=== PATIENT | male | born 1975 | race Caucasian/White ===

== ENCOUNTER 2016-11-01 18:23 | Emergency (ER) | payer OTHER ==
[~2016-11-01] VITALS: Ht 177.8 cm; Wt 93.3 kg
[~2016-11-01 18:23] MED LIST: ATIVAN2 MG PO; CIPRO500 MG PO; DILAUDID8 MG PO; FLAGYL500 MG PO; HYDROMORPHONE HC8 MG PO; METHADONE10 MG PO; METRONIDAZOLE500 MG PO; OXYCONTIN40 MG PO; PHENADOZ25 MG PR; ROXICODONE30 MG PO; TERBINAFINE HC250 MG PO; TRAMADOL HCL50 MG PO; ZOFRAN ODT4 MG PO; ZOFRAN4 MG PO
[2016-11-01] MEDS ORDERED: LIDODERM 5% P1 PATCH TD (20:30)
[2016-11-01] MEDS ORDERED: INDOCIN50 MG PO (20:31)
[2016-11-01] MEDS ORDERED: VALIUM5 MG PO (20:31)
[2016-11-01 21:24] VITALS: BP 150/66
== END 2016-11-01 21:25 | disposition home or self-care (01) ==
LOC: EME 18:23
DX: S29.011A Strain of muscle and tendon of front wall of thorax, initial encounter (principal); X50.0XXA Overexertion from strenuous movement or load, initial encounter; Y93.89 Activity, other specified
CPT/HCPCS: 99281; 99284; J3010

== ENCOUNTER 2017-05-27 16:00 | Inpatient (IN) | payer OTHER ==
[~2017-05-27] VITALS: Ht 180.3 cm; Wt 72.1 kg
[~2017-05-27 16:00] MED LIST changes: +INDOCIN50 MG PO; +LIDODERM 5% P1 PATCH TD; +VALIUM5 MG PO
[2017-05-27 17:06] LABS: HEMATOCRIT 42.3 % (38.0-50.0); HEMOGLOBIN 14.8 G/DL (12.5-16.6); MCH 29.9 PG (29.0-34.0); MCV 85.5 FL (86-99); PLATELET COUNT 235 K/uL (156-360); RBC DIS.WIDTH-CV 13.1 % (11.8-14.6); RBC DIS.WIDTH-SD 40.3 % (39-53); RED BLOOD COUNT 4.95 M/uL (4.00-5.50); WHITE BLOOD COUNT 11.8 K/uL (4.1-10.2)
[2017-05-27 17:16] LABS: CHLORIDE 107 mEq/L (99-109); POTASSIUM 3.7 mEq/L (3.7-5.4); SODIUM 140 mEq/L (136-147)
[2017-05-27 17:18] LABS: GLUCOSE 98 mg/dL (70-99)
[2017-05-27 17:21] LABS: SERUM ETHYL ALCOHOL < 10 mg/dL
[2017-05-27 17:22] LABS: GFR ESTIMATE (CALCULATED) > 59 mL/min/ (58.99-99999); UREA NITROGEN (BUN) 13 mg/dL (9-23)
[2017-05-27 21:58] LABS: AMPHETAMINE NEGATIVE (500 ng/mL); BARBITURATES NEGATIVE (200 ng/mL); BENZODIAZEPINES NEGATIVE (150 ng/mL); BUPRENORPHINE NEGATIVE (10 ng/mL); COCAINE NEGATIVE (150 ng/mL); METHADONE NEGATIVE (200 ng/mL); METHAMPHETAMINE NEGATIVE (500 ng/mL); OPIATES (MORPHINE) NEGATIVE (100 ng/mL); OXYCODONE NEGATIVE (100 ng/mL); PHENCYCLIDINE NEGATIVE (25 ng/mL); PROPOXYPHENE NEGATIVE (300 ng/mL); THC CANNABINOIDS PRESUMPTIVE POSITIVE (50 ng/mL); TRICYCLIC ANTIDEPRESSANTS NEGATIVE (300 ng/mL)
[2017-05-27 22:38] VITALS: BP 113/58
[2017-05-28 16:11] VITALS: BP 82/50
[2017-05-29 08:00] VITALS: BP 116/64
[2017-05-29 15:50] VITALS: BP 92/55
[2017-05-30 12:15] VITALS: BP 106/58
[2017-05-30 15:49] VITALS: BP 87/53
[2017-05-31 07:35] VITALS: BP 114/66
[2017-05-31 15:49] VITALS: BP 102/58
[2017-06-01 07:54] VITALS: BP 108/74
[2017-06-01 15:44] VITALS: BP 113/61
[2017-06-02 07:39] VITALS: BP 113/77
[2017-06-02 15:57] VITALS: BP 116/64
[2017-06-03 08:15] VITALS: BP 107/68
[2017-06-03 15:54] VITALS: BP 118/73
[2017-06-04 03:01] VITALS: BP 99/54
[2017-06-04 07:57] VITALS: BP 119/68
[2017-06-04 15:43] VITALS: BP 118/60
[2017-06-05 07:58] VITALS: BP 103/57
[2017-06-06 07:45] VITALS: BP 121/75
[2017-06-06 15:37] VITALS: BP 113/58
[2017-06-07 08:14] VITALS: BP 113/60
[2017-06-07 16:22] VITALS: BP 101/70
[2017-06-08 07:25] VITALS: BP 87/52
[2017-06-08 08:43] LABS: BASOPHIL (%) 0.6 % (0-1); EOSINOPHIL (%) 1.6 % (0-5); EOSINOPHIL COUNT 0.1 K/uL (0-0.3); HEMATOCRIT 44.3 % (38.0-50.0); HEMOGLOBIN 14.8 G/DL (12.5-16.6); IMMATURE GRANULOCYTE (%) 0.5 % (0.0-0.7); LYMPHOCYTE (%) 27.7 % (15-42); LYMPHOCYTE COUNT 1.7 K/uL (1.0-2.8); MCHC 33.4 G/DL (30.0-36.0); MONOCYTE (%) 7.2 % (3-12); MONOCYTE COUNT 0.5 K/uL (0-0.8); NEUTROPHIL (%) 62.4 % (45-76); NEUTROPHIL COUNT 3.9 K/uL (1.8-6.4); RBC DIS.WIDTH-CV 13.2 % (11.8-14.6); RBC DIS.WIDTH-SD 43.7 % (39-53); RED BLOOD COUNT 4.93 M/uL (4.00-5.50); WHITE BLOOD COUNT 6.3 K/uL (4.1-10.2)
[2017-06-08 09:04] LABS: PLAT.SUFFICIENCY ADEQUATE
[2017-06-08 09:19] LABS: MCV 89.9 FL (86-99); PLATELET COUNT 142 K/uL (156-360)
[2017-06-08 10:00] LABS: ALBUMIN 4.1 G/DL (3.2-4.8); ALKALINE PHOSPHATASE 63 IU/L (3-129); ALT (GPT) 18 IU/L (3-49); AST (GOT) 15 IU/L (2-34); DIRECT BILIRUBIN 0.1 mg/dL (0.0-0.3); TOTAL BILIRUBIN 0.4 MG/DL (0.0-1.0); TOTAL PROTEIN 6.4 G/DL (6.4-8.3); VALPROIC ACID (DEPAKOTE) 99.9 MCG/ML (50-100)
[2017-06-08] MEDS ORDERED: DIVALPROEX SOD500 MG PO ×2 (10:26)
[2017-06-08] MEDS ORDERED: RISPERDAL2 MG PO (10:26)
== END 2017-06-08 11:57 | disposition home or self-care (01) | DRG 885 ==
LOC: EME 16:00 → 1WEST 21:01 → EDOF 21:01 → ENRESERV 22:07 → 1WEST 22:23
PROVIDERS: Psychiatry & Neurology Psychiatry
DX: F31.2 Bipolar disorder, current episode manic severe with psychotic features (principal); R51 Headache; F12.90 Cannabis use, unspecified, uncomplicated; Z79.899 Other long term (current) drug therapy; H53.2 Diplopia; Z87.891 Personal history of nicotine dependence
CPT/HCPCS: 80048; 80076; 80164; 80178; 84999; 85025; 85027; 90837; 97150 GO; 97166 GO; 99281; 99285; G0480; J1630; J2060